=== PATIENT | male | born 1970 | race Caucasian/White ===

== ENCOUNTER → 2016-09-15 | Outpatient (CLI) | payer BC ==
[2016-09-15 13:40] LABS: CHOLESTEROL/HDL RATIO 5.2; THYROID STIMULATING HORMONE 1.71 uIu/ml (0.300-4.500)
== END | disposition home or self-care (01) ==
LOC: C.LABBFT 07:51
PROVIDERS: ATTEND Physician Assistant Medical
DX: R53.83 Other fatigue (principal); Z13.1 Encounter for screening for diabetes mellitus; Z13.6 Encounter for screening for cardiovascular disorders

== ENCOUNTER → 2017-07-31 | Outpatient (CLI) | payer BC ==
--- NOTE | 2017-08-03 11:07 | POLYSOMNOGRAPH REPORT ---
CLINICAL DATA: A 46-year-old male with BMI of 40.[address] Hough and myself for a sleep study with symptoms of increased snoring and fatigue. His Romulus sleepiness score is 14/24, which is elevated. On the evening of 07/31/2017, a home sleep apnea test was performed using a Soundstache type 3 monitor. RECORDING RESULTS: Total recording time was 10 hours. The patient's monitoring time and estimated sleep time was 7.1 hours. RESPIRATORY DATA: Severe sleep apnea was documented. The LAWRENCE was 45.1. There were 131 obstructive, 2 mixed, and 2 central apneic episodes. There were 186 hypopneic episodes. The longest respiratory event was 40 seconds. OXIMETRY DATA: Nocturnal hypoxemia was seen. Oxygen daniela was 74%. Mean saturation was 88%. Time below 89% was 218 minutes. HEART RATE DATA: Heart rates ranged from 46-67 beats per minute. SNORING DATA: Snoring was recorded throughout the night. ASSISTANT COMMISSIONER'S COMMENTS: Snoring was present throughout the entire study. Hypopneas and apneas were seen. Saturations ran in the high 80s. The patient's chest belt did not record, but the abdominal belt was used to score the study. IMPRESSION: Severe sleep apnea/hypopnea with an LAWRENCE of 45.1 and an oxygen daniela of 74%. RECOMMENDATIONS: The patient should be considered for a repeat sleep study with CPAP or use of auto CPAP. JACOBOD
== END | disposition home or self-care (01) ==
LOC: C.NEUR 08:40
PROVIDERS: ATTEND Physician Assistant Medical
DX: G47.33 Obstructive sleep apnea (adult) (pediatric) (principal); E66.9 Obesity, unspecified